=== PATIENT | male | born 1960 ===

== ENCOUNTER → 2019-01-13 21:15 | Outpatient (REF) | payer OTHER, SELFPAY ==
[2019-01-13 22:57] LABS: Add Manual Diff / Slide Review NO; Basophils Absolute Auto 100 /uL (0-100); Basophils Percent Auto 1.3 % (0-2); Eosinophils Absolute Auto 100 /uL (0-450); Eosinophils Percent Auto 1.5 % (2-4); Hematocrit 44.9 % (41-53); Hemoglobin 14.9 g/dL (13.5-17.5); Lymphocytes Absolute Auto 1600 /uL (1100-4500); Lymphocytes Percent Auto 33.5 % (25-40); Mean Corpuscular HGB Conc 33.2 % (30-36); Mean Corpuscular Hemoglobin 28.6 PG (26-34); Mean Corpuscular Volume 86.1 fL (80-100); Monocytes Absolute Auto 400 /uL (0-900); Monocytes Percent Auto 8.6 % (3-14); Neutrophils Absolute Auto 2700 /uL (1500-7000); Neutrophils Percent Auto 55.1 % (50-75); Platelet Count 238 X10^3/uL (150-400); Red Blood Cell Count 5.22 X10^6/uL (4.5-5.9); White Blood Cell Count 4.9 X10^3/uL (4.5-11.0)
[2019-01-13 23:00] LABS: BUN Creatinine Ratio 16.3 (6-22); Blood Urea Nitrogen 13 mg/dL (9-20); Calcium 9.8 mg/dL (8.4-10.2); Carbon Dioxide 29 mmol/L (22-32); Chloride 103 mmol/L (98-107); Estimated Glomerular Filt Rate > 60.0 mL/min (>60); Glucose 83 mg/dL (70-100); HEMOLYSIS < 15 (0-50); Potassium 4.4 mmol/L (3.4-5.1); Sodium 140 mmol/L (137-145)
[2019-01-13 23:04] LABS: Appearance Urine UA CLOUDY; Bilirubin Urine UA NEGATIVE (NEGATIVE); Color Urine UA YELLOW; Glucose Urine UA NEGATIVE (Negative); Ketones Urine UA NEGATIVE (NEGATIVE); Leukocyte Esterase Urine UA NEGATIVE (NEGATIVE); Nitrite Urine UA NEGATIVE (Negative); Occult Blood Urine UA NEGATIVE (Negative); Protein Urine UA NEGATIVE (Negative); Specific Gravity Urine UA >=1.030 (1.000-1.035); Urobilinogen Urine UA 0.2 E.U./dL (0.2)
[2019-01-13 23:27] LABS: Uric Acid Crystals Urine Few
[2019-01-13 23:28] LABS: Culture Indicated Urine Specimen Cultured
[2019-01-13 23:32] LABS: Calcium Oxalate Crystals Urine Occasional
[2019-01-13 23:33] LABS: Amorphous Sediment Urine 4+
[2019-01-13 23:53] LABS: RBC Urine 0-1/HPF (0-5/HPF)
[2019-01-13 23:54] LABS: Squamous Epithelial Cell Urine 0-1 /HPF; WBC Urine 0-1/HPF (0-5/HPF)
[2019-01-13 23:55] LABS: Bacteria Urine Occasional (0-1)
[2019-01-14 00:42] LABS: Erythrocyte Sedimentation Rate 13 MM/HR (0-15)
== END ==
LOC: LAB 21:15
PROVIDERS: Visit Provider Naturopath
DX: M54.5 Low back pain (principal)
CPT/HCPCS: 36415; 80048; 81001; 85025; 85651; 87086